=== PATIENT | female | born 1995 | race African-American/Black ===

== ENCOUNTER 2024-12-30 20:42 | Emergency (ER) | payer OTHER ==
[~2024-12-30] VITALS: Ht 162.6 cm; Wt 64.0 kg
[2024-12-31 01:22] LABS: BASO % 0.2 % (0.1-1.2); EOS # 0.01 (0.04-0.54); EOS % 0.1 % (0.7-7.0); LYMPH # 2.99 (1.18-3.74); LYMPH % 23.4 % (19.3-53.1); MEAN PLATELET VOLUME 10.80 fl (9.4-12.4); MONO # 1.08 (0.24-0.82); MONO % 8.5 % (4.7-12.5); NEUT # 8.63 (1.56-6.13); NEUT % 67.6 % (34.0-71.1); RED CELL DISTRIBUTION WIDTH 11.9 % (11.6-14.4)
== END 2024-12-31 03:46 | disposition home or self-care (01) ==
LOC: ER 20:42
PROVIDERS: General Practice
DX: O20.8 Other hemorrhage in early pregnancy (principal); Z3A.01 Less than 8 weeks gestation of pregnancy; Z91.018 Allergy to other foods